=== PATIENT | male | born 1975 | race Caucasian/White ===

== ENCOUNTER → 2016-11-24 | Outpatient (CLI) | payer BC ==
--- NOTE | 2016-11-25 08:37 | XR ---
EXAMINATION TYPE: XR chest 2V DATE OF EXAM: 11/24/2016 7:33 PM COMPARISON: 02/26/2012 INDICATION: examination, shortness of breath for 3 months TECHNIQUE: Single frontal view of the chest is obtained. FINDINGS: The heart size is normal. The pulmonary vasculature is normal. The lungs are clear. IMPRESSION: 1. No acute pulmonary process.
== END ==
LOC: RADXRMAIN 19:21
PROVIDERS: ATTEND Family Medicine
DX: Z00.00 Encounter for general adult medical examination without abnormal findings (principal)
CPT/HCPCS: 71020

== ENCOUNTER → 2016-12-13 | Outpatient (CLI) | payer BC ==
--- NOTE | 2016-12-13 11:06 | US ---
EXAMINATION TYPE: US gallbladder DATE OF EXAM: 12/13/2016 9:09 AM COMPARISON: NONE CLINICAL HISTORY: 41-year-old male R79.9 abnormal Labs. Generalized abdominal pain per patient. TECHNIQUE: Multiple sonographic images of the right upper quadrant were obtained. FINDINGS: Liver Length: 13.1 cm Gallbladder Wall: 0.2 cm CBD: 0.4 cm Right Kidney: 11.7 x 5.1 x 6.0 cm Pancreas: Suboptimal visualization of the pancreatic tail secondary to shadowing from bowel gas. Vis ualized portions show no gross abnormality. Liver: Normal size and with homogeneous echotexture. No focal lesion. Gallbladder: There is a junctional fold. No abnormal gallbladder distention, wall thickening, perich olecystic fluid, or shadowing calculi. Evidence for sonographic Rodriguez's sign: No CBD: wnl Right Kidney: No hydronephrosis. IMPRESSION: No sonographic evidence for cholelithiasis, acute cholecystitis, or biliary ductal dilatation.
== END | disposition home or self-care (01) ==
LOC: RADUSWWP 08:32
PROVIDERS: ATTEND Family Medicine
DX: R79.9 Abnormal finding of blood chemistry, unspecified (principal)
CPT/HCPCS: 76705

== ENCOUNTER 2017-12-26 11:10 | Emergency (ER) | payer BC, OTHER ==
[2017-12-26 11:25] VITALS: BP 165/104; PULSE 72; RESP 20; TEMP 97.2
[2017-12-26] MEDS ORDERED: DIPH,PERTUS(ACELL)TETVAC-LF 0.5 ML VIAL IM ONE (12:04)
--- NOTE | 2017-12-26 12:23 | XR ---
EXAMINATION TYPE: XR hand complete LT DATE OF EXAM: 12/26/2017 COMPARISON: NONE HISTORY: Pain injury with drill TECHNIQUE: Three-view left hand FINDINGS: No acute fractures are evident. Joint spaces are preserved. Injury site is not identified. There is a tiny metallic foreign body within the subcutaneous tissues of the proximal index finger. C ouple of additional punctate densities appear to be along the surface of the distal index finger. No additional foreign bodies are identified. IMPRESSION: 1. No acute osseous abnormality. 2. Very tiny foreign body may be at the proximal radial aspect of the index finger. 3. Follow-up exams can be performed 7-10 days from acute trauma for continued pain
--- NOTE | 2017-12-26 12:35 | ED ---
General Adult HPI - General Chief complaint: Wound/Laceration Stated complaint: [facility] lt hand puncture Time Seen by Provider: 12/26/17 11:52 Source: patient, RN notes reviewed Mode of arrival: ambulatory Limitations: no limitations - History of Present Illness Initial comments: 42-year-old male presents to the emergency department for a chief complaint of puncture to the left hand. Patient states he was using a drill when he accidentally hit the side of his left hand. Patient denies any weakness in the hand but states it is sore. Patient states he can feel all 5 digits in the left hand and move them accordingly. Patient denies any fevers or chills. Patient denies any other complaints at this time including shortness of breath or chest pain. Patient is not sure when he had his last tetanus shot. Patient denies a history of MRSA. Patient is a type I diabetic. - Related Data Home Medications Medication Instructions Recorded Confirmed Insulin Regular, Human [NovoLIN R] 48 unit SQ DAILY 11/22/15 11/22/15 Previous Rx's Medication Instructions Recorded Amoxicillin/Potassium Clav 1 tab PO Q12HR #20 tab 12/26/17 [Augmentin 875-125 Tablet] Ibuprofen 600 mg PO Q8H PRN #20 tablet 12/26/17 Allergies Allergy/AdvReac Type Severity Reaction Status Date / Time No Known Allergies Allergy Verified 12/26/17 11:21 Review of Systems ROS Statement: Those systems with pertinent positive or pertinent negative responses have been documented in the HPI. ROS Other: All systems not noted in ROS Statement are negative. Past Medical History Past Medical History: Diabetes Mellitus, Hypertension History of Any Multi-Drug Resistant Organisms: None Reported Past Surgical History: No Surgical Hx Reported Past Psychological History: No Psychological Hx Reported Smoking Status: Current every day smoker Past Alcohol Use History: Occasional Past Drug Use History: None Reported General Exam Limitations: no limitations Respiratory exam: Present: normal lung sounds bilaterally. Absent: respiratory distress, wheezes, rales, rhonchi, stridor Cardiovascular Exam: Present: regular rate, normal rhythm, normal heart sounds. Absent: systolic murmur, diastolic murmur, rubs, gallop, clicks Extremities exam: Present: full ROM (Full range of motion of the left hand and digits), normal capillary refill (Refill less than 2 seconds in upper extremities bilaterally), other (There is a 1 cm puncture wound in the lateral palmar aspect of the left hand. Patient has full range of motion and sensation in the left hand and left digits. Capillary refill less than 2 seconds digits and nail beds of the left hand.). Absent: joint swelling Course Vital Signs 12/26/17 11:21 Temperature 97.2 F L Pulse Rate 72 Respiratory 20 Rate Blood Pressure 165/104 O2 Sat by Pulse 96 Oximetry Medical Decision Making - Medical Decision Making 42-year-old male presents the emergency department for a chief complaint of puncture wound from a drill the happened about an hour ago. There is a 1 cm laceration on the lateral palmar aspect of the left hand. Wound was thoroughly cleaned with sterile water and Betadine. It was soaked and then cleaned with jet lavage. Patient was offered to stitch this small laceration with one stitch but he did not want to have stitches. He was given a Steri-Strip and told to monitor for infection. Patient has full sensation and movement of the left hand. Cap refill less than 2 seconds in the nail beds of the left hand. Neurovascular intact. X-ray of the left hand demonstrates no acute fractures or dislocations. Very small foreign body may be at the proximal radial aspect of the index finger. This must be from a previous injury as it is not consistent in the location of this injury. Patient was given a tetanus shot and Augmentin. He is also given a prescription for ibuprofen and instructions for rice therapy. He will follow up with primary care in 1-2 days. We discussed monitoring for infection as he is a type I diabetic and he said he will closely watch the site as well as follow up with primary care so they can check on it. Disposition Clinical Impression: Puncture wound Disposition: HOME SELF-CARE Condition: Good Instructions: RICE Therapy (ED) Additional Instructions: Please take ibuprofen for pain relief. Please keep wound clean. Take Augmentin as directed. Monitor for signs of infection and return to the emergency department if you notice any occurring. Please follow-up with your primary care physician in 1 to 2 days. Please return to the Emergency Department if symptoms worsen or do not improve. Prescriptions: Amoxicillin/Potassium Clav [Augmentin 875-125 Tablet] 1 tab PO Q12HR #20 tab Ibuprofen 600 mg PO Q8H PRN #20 tablet PRN Reason: Pain Referrals: Joel Best DO [Primary Care Provider] - 1-2 days Time of Disposition: 12:33
== END 2017-12-26 13:06 | disposition home or self-care (01) ==
LOC: EC 11:10
DX: S61.432A Puncture wound without foreign body of left hand, initial encounter (principal); E10.8 Type 1 diabetes mellitus with unspecified complications; F17.200 Nicotine dependence, unspecified, uncomplicated; Z79.4 Long term (current) use of insulin; Z23 Encounter for immunization; W22.8XXA Striking against or struck by other objects, initial encounter; Y99.0 Civilian activity done for income or pay
CPT/HCPCS: 90471; 90715; 99283

== ENCOUNTER → 2018-03-31 | Outpatient (CLI) | payer BC ==
[2018-03-31 09:49] LABS: ALT 45 U/L (21-72); AST 25 U/L (17-59); Albumin 4.2 g/dL (3.5-5.0); Alkaline Phosphatase 122 U/L (38-126); Anion Gap 12 mmol/L; Blood Urea Nitrogen 17 mg/dL (9-20); Calcium 9.5 mg/dL (8.4-10.2); Carbon Dioxide 25 mmol/L (22-30); Chloride 102 mmol/L (98-107); Cholesterol 145 mg/dL (<200); Glucose 224 mg/dL (74-99); HDL Cholesterol 26 mg/dL (40-60); LDL Cholesterol,Calculated 87 mg/dL (0-99); Potassium 4.3 mmol/L (3.5-5.1); Sodium 139 mmol/L (137-145); Total Bilirubin 1.7 mg/dL (0.2-1.3); Total Protein 6.6 g/dL (6.3-8.2); Triglycerides 161 mg/dL (<150)
[2018-03-31 18:37] LABS: Hemoglobin A1C 9.4 % (4.0-6.0)
== END | disposition home or self-care (01) ==
LOC: LABWHC1 09:03
PROVIDERS: ATTEND Internal Medicine Endocrinology, Diabetes & Metabolism
DX: E10.65 Type 1 diabetes mellitus with hyperglycemia (principal)
CPT/HCPCS: 36415; 80053; 80061; 82043; 82570; 83036; 84443

== ENCOUNTER → 2018-09-01 | Outpatient (CLI) | payer BC ==
[2018-09-01 12:10] LABS: Basophils % (A) 1 %; Eosinophils # (A) 0.1 k/uL (0-0.7); Eosinophils % (A) 2 %; HCT 48.5 % (39.0-53.0); HGB 15.9 gm/dL (13.0-17.5); Lymphocytes % (A) 40 %; MCH 29.4 pg (25.0-35.0); MCHC 32.8 g/dL (31.0-37.0); MCV 89.5 fL (80.0-100.0); Mean Platelet Volume 7.4; Monocytes # (A) 0.3 k/uL (0-1.0); Monocytes % (A) 6 %; Neutrophils # (A) 2.6 k/uL (1.3-7.7); Neutrophils % (A) 50 %; Platelet Count 214 k/uL (150-450); RBC 5.42 m/uL (4.30-5.90); WBC 5.1 k/uL (3.8-10.6)
--- NOTE | 2018-09-02 13:40 | XR ---
EXAMINATION TYPE: XR chest 2V DATE OF EXAM: 09/01/2018 COMPARISON: 12/04/2016 HISTORY: Shortness of breath TECHNIQUE: Frontal and lateral views of the chest are obtained. FINDINGS: There is no focal air space opacity, pleural effusion, or pneumothorax seen. The cardiac silhouette size is within normal limits. The osseous structures are intact. Biapical pleural thicke joseph is stable. IMPRESSION: No acute cardiopulmonary process.
[2018-09-03 14:46] LABS: Alt. alternata IgE Class CLASS 0; Alternaria alternata IgE <0.35 kU/L (<0.35); Asperg. fumagatus IgE <0.35 kU/L (<0.35); Asperg. fumagatus IgE Class CLASS 0; Bermuda Grass IgE <0.35 kU/L (<0.35); Birch(Com.Silvr) IgE <0.35 kU/L (<0.35); Birch(Com.Silvr) IgE Class CLASS 0; Cat Epith & Dander IgE <0.35 kU/L (<0.35); Cat Epith & Dander IgE Class CLASS 0; Clad herbarum IgE <0.35 kU/L (<0.35); Cockroach IgE <0.35 kU/L (<0.35); Cottonwood IgE <0.35 kU/L (<0.35); Dermato. Pteronyssinus IgE <0.35 kU/L (<0.35); Dermato. farinae IgE <0.35 kU/L (<0.35); Dermato. farinae IgE Class CLASS 0; Dog Dander IgE <0.35 kU/L (<0.35); Elm IgE <0.35 kU/L (<0.35); Maple (Box Elder) IgE <0.35 kU/L (<0.35); Maple (Box Elder) IgE Class CLASS 0; Mountain Cedar IgE <0.35 kU/L (<0.35); Mountain Cedar IgE Class CLASS 0; Mouse Urine IgE Class CLASS 0; Nettle IgE <0.35 kU/L (<0.35); Nettle IgE Class CLASS 0; Oak IgE <0.35 kU/L (<0.35); Penicillium notatum IgE Class CLASS 0; Rough Marshelder IgE <0.35 kU/L (<0.35); Rough Marshelder IgE Class CLASS 0; Timothy Grass IgE <0.35 kU/L (<0.35); White Ash IgE Class CLASS 0
[2018-09-04 13:56] LABS: Alpha 1 Anti-Trypsin 91 mg/dL (90 - 200); Alpha-1-Antitrypsin Phenotype MZ
== END ==
LOC: LABWHC1 11:42
PROVIDERS: ATTEND Nurse Practitioner
DX: R06.02 Shortness of breath (principal); J45.909 Unspecified asthma, uncomplicated
CPT/HCPCS: 36415; 71046; 82103; 82104; 82785; 85025; 86001; 86003; 86606; 86609

== ENCOUNTER 2019-04-10 15:57 | Emergency (ER) | payer BC ==
[2019-04-10 16:12] VITALS: RESP 18; TEMP 98.6
[2019-04-10 16:13] LABS: Glucose,Whole Blood 178 mg/dL (75-99)
--- NOTE | 2019-04-10 16:16 | ED ---
Recheck HPI - General Chief Complaint: Altered Mental Status Stated Complaint: diabetic Time Seen by Provider: 04/10/19 16:04 Source: patient, EMS, RN notes reviewed, old records reviewed Mode of arrival: EMS Limitations: no limitations - History of Present Illness Initial Comments: This is a 43-year-old male the ER for evaluation. Patient is a type I diabetic on insulin pump with recent change in medications to his insulin especially in the afternoon. Patient with intractable per normal today no nausea vomiting or diarrhea. Patient was found to be altered with low blood sugar brought in by EMS who gave sugar, patient has improvement. Patient denying current complaints. Able to eat and drink MD Complaint: abnormal lab (Low blood sugar) -: minutes(s) Returns Today for: other (Patient had low blood sugar,decreased level responsiveness. Improved blood sugar was improved) Symptoms Since Prior Visit: no new symptoms Context: other (Coming in for symptoms) Associated Symptoms: malaise Treatments Prior to Arrival: IV/IO (Glucose) - Related Data Home Medications Medication Instructions Recorded Confirmed Insulin Aspart (For Pump) [NovoLOG 0.01 unit SQ-PUMP CONTINUOUS 04/10/19 04/10/19 (For Pump)] Lisinopril [Zestril] 20 mg PO DAILY 04/10/19 04/10/19 Multivitamins, Thera [Multivitamin 1 tab PO DAILY 04/10/19 04/10/19 (formulary)] Omeprazole 20 mg PO DAILY 04/10/19 04/10/19 Allergies Allergy/AdvReac Type Severity Reaction Status Date / Time No Known Allergies Allergy Verified 04/10/19 16:50 Review of Systems ROS Statement: Those systems with pertinent positive or pertinent negative responses have been documented in the HPI. ROS Other: All systems not noted in ROS Statement are negative. Past Medical History Past Medical History: Diabetes Mellitus, Hypertension History of Any Multi-Drug Resistant Organisms: None Reported Past Surgical History: No Surgical Hx Reported Past Psychological History: No Psychological Hx Reported Smoking Status: Current every day smoker Past Alcohol Use History: Occasional Past Drug Use History: None Reported General Exam Limitations: no limitations General appearance: alert, in no apparent distress Head exam: Present: atraumatic, normocephalic, normal inspection Eye exam: Present: normal appearance, PERRL, EOMI. Absent: scleral icterus, conjunctival injection, periorbital swelling ENT exam: Present: normal exam, mucous membranes moist Neck exam: Present: normal inspection. Absent: tenderness, meningismus, lymphadenopathy Respiratory exam: Present: normal lung sounds bilaterally. Absent: respiratory distress, wheezes, rales, rhonchi, stridor Cardiovascular Exam: Present: regular rate, normal rhythm, normal heart sounds. Absent: systolic murmur, diastolic murmur, rubs, gallop, clicks GI/Abdominal exam: Present: soft, normal bowel sounds. Absent: distended, tenderness, guarding, rebound, rigid Extremities exam: Present: normal inspection, full ROM, normal capillary refill. Absent: tenderness, pedal edema, joint swelling, calf tenderness Back exam: Present: normal inspection Neurological exam: Present: alert, oriented X3, CN II-XII intact Psychiatric exam: Present: normal affect, normal mood Skin exam: Present: warm, dry, intact, normal color. Absent: rash Course Vital Signs 04/10/19 04/10/19 16:07 16:52 Temperature 98.6 F Pulse Rate 92 83 Respiratory 18 18 Rate Blood Pressure 166/85 153/90 O2 Sat by Pulse 100 96 Oximetry - Reevaluation(s) Reevaluation #1: 04/10/19 17:25 Medical records reviewed Reevaluation #2: 04/10/19 17:25 Patient remains awake and alert, able to change in some pump, able to eat Medical Decision Making - Medical Decision Making 43 female the ER for evaluation altered mental status low blood sugar. Patient will be discharged home as he is able to currently drink - Lab Data Lab Results 04/10/19 Range/Units 16:11 POC Glucose (mg/dL) 178 H (75-99) mg/dL POC Glu Medical Underwriter Mario Waldrop Disposition Clinical Impression: Diabetic hypoglycemia Disposition: HOME SELF-CARE Condition: Good Instructions (If sedation given, give patient instructions): Hypoglycemia in a Person with Diabetes (ED) Is patient prescribed a controlled substance at d/c from ED?: No Referrals: Joel Best DO [Primary Care Provider] - 1-2 days
[2019-04-10 17:37] VITALS: BP 160/89; PULSE 87
[2019-04-10 17:40] LABS: Glucose,Whole Blood 243 mg/dL (75-99)
== END 2019-04-10 17:36 | disposition home or self-care (01) ==
LOC: EC 15:57
DX: E10.649 Type 1 diabetes mellitus with hypoglycemia without coma (principal); I10 Essential (primary) hypertension; F17.200 Nicotine dependence, unspecified, uncomplicated; Z79.4 Long term (current) use of insulin; Z79.899 Other long term (current) drug therapy; Z96.41 Presence of insulin pump (external) (internal)
CPT/HCPCS: 36415; 99285

== ENCOUNTER 2020-05-05 21:14 | Observation (INO) | payer BC ==
[2020-05-05] MEDS ORDERED: IPRATROPIUM-ALBUTEROL 3 ML NEB INHALATION STA (21:33)
[2020-05-05] MEDS ORDERED: ASPIRIN 81 MG PO STA (21:33)
--- NOTE | 2020-05-05 21:35 | ED ---
Chest Pain HPI - General Source: patient, RN notes reviewed Mode of arrival: ambulatory Limitations: no limitations <Brandin Fleming - Last Filed: 05/05/20 22:45> <Abdi Sotomayor - Last Filed: 05/05/20 23:19> - General Chief Complaint: Chest Pain Stated Complaint: Chest and back pain Time Seen by Provider: 05/05/20 21:24 - History of Present Illness Initial Comments: 43-year-old male presents emergency Department chief complaints of chest pain. Patient states started to 3 days ago. Patient states is substernal and does have some back pain. Patient states his back is very sensitive to touch denies any rash. Patient states he feels very short of breath but states this is usual as he is a daily smoker. Patient does admit that he has a history of hypertension and diabetes. Patient had an insulin pump. Patient states blood sugars have been recently elevated. Denies fever, chills, nausea vomiting diarrhea constipation. No abdominal complaints. Patient states he does have some exertional symptoms. (Brandin Fleming) - Related Data Home Medications Medication Instructions Recorded Confirmed Insulin Aspart (For Pump) [NovoLOG 0.01 unit SQ-PUMP CONTINUOUS 04/10/19 05/05/20 (For Pump)] Multivitamins, Thera [Multivitamin 1 tab PO DAILY 04/10/19 05/05/20 (formulary)] Omeprazole 20 mg PO DAILY 04/10/19 05/05/20 Losartan Potassium [Cozaar] 100 mg PO DAILY 05/05/20 05/05/20 Allergies Allergy/AdvReac Type Severity Reaction Status Date / Time amoxicillin Allergy Itching Verified 05/05/20 22:36 Review of Systems ROS Other: All systems not noted in ROS Statement are negative. <Brandin Fleming - Last Filed: 05/05/20 22:45> ROS Other: All systems not noted in ROS Statement are negative. <Abdi Sotomayor - Last Filed: 05/05/20 23:19> ROS Statement: Those systems with pertinent positive or pertinent negative responses have been documented in the HPI. EKG Findings - EKG Comments: EKG Findings:: EKG performed at 21:23 normal sinus rhythm rate of 91. 138 QRS 80 QT/QTC 342/420 <Brandin Fleming - Last Filed: 05/05/20 22:45> Past Medical History Past Medical History: Diabetes Mellitus, Hypertension History of Any Multi-Drug Resistant Organisms: None Reported Past Surgical History: No Surgical Hx Reported Past Psychological History: No Psychological Hx Reported Smoking Status: Current every day smoker Past Alcohol Use History: Occasional Past Drug Use History: None Reported <Brandin Fleming - Last Filed: 05/05/20 22:45> General Exam Limitations: no limitations General appearance: alert, in no apparent distress Head exam: Present: atraumatic, normocephalic, normal inspection Eye exam: Present: normal appearance, PERRL, EOMI. Absent: scleral icterus, conjunctival injection, periorbital swelling ENT exam: Present: normal exam, normal oropharynx, mucous membranes moist Neck exam: Present: normal inspection, full ROM. Absent: tenderness, meningismus, lymphadenopathy Respiratory exam: Present: wheezes. Absent: normal lung sounds bilaterally, respiratory distress, rales, rhonchi, stridor Cardiovascular Exam: Present: regular rate, normal rhythm, normal heart sounds. Absent: systolic murmur, diastolic murmur, rubs, gallop, clicks GI/Abdominal exam: Present: soft, normal bowel sounds. Absent: distended, tenderness, guarding, rebound, rigid Back exam: Absent: CVA tenderness (R), CVA tenderness (L) Neurological exam: Present: alert, oriented X3 Skin exam: Present: warm, dry, intact, normal color. Absent: rash <Brandin Fleming - Last Filed: 05/05/20 22:45> Course Vital Signs 05/05/20 05/05/20 05/05/20 21:15 22:11 22:24 Temperature 99.1 F Pulse Rate 96 84 80 Respiratory 18 Rate Blood Pressure 152/82 O2 Sat by Pulse 97 Oximetry Chest Pain MDM <Brandin Fleming - Last Filed: 05/05/20 22:45> <Abdi Sotomayor - Last Filed: 05/05/20 23:19> - [facility] [place] 44-year-old male presented for chest pain. Patient's x-ray shows evidence right lower lobe pneumonia. Patient does have uncontrolled type 1 diabetes at this point blood sugar 400 patient did give himself insulin. Patient continues to have chest pain. Patient be admitted for chest pain observation and repeat troponins, heparin (Brandin Fleming) I saw this patient in conjunction with the physician health education assistant. I performed independent history and physical exam. Agree with case management. (Abdi Sotomayor) Disposition <Brandin Fleming - Last Filed: 05/05/20 22:45> <Abdi Sotomayor - Last Filed: 05/05/20 23:19> Clinical Impression: Chest pain, Pneumonia, Uncontrolled diabetes mellitus Disposition: ADMITTED IP TO THIS [facility] Condition: Fair Referrals: Joel Best DO [Primary Care Provider] - 1-2 days
[2020-05-05 21:50] LABS: Basophils # (A) 0.1 k/uL (0-0.2); Basophils % (A) 1 %; Eosinophils # (A) 0.1 k/uL (0-0.7); Eosinophils % (A) 1 %; HGB 14.6 gm/dL (13.0-17.5); Lymphocytes # (A) 1.9 k/uL (1.0-4.8); Lymphocytes % (A) 20 %; MCH 29.4 pg (25.0-35.0); MCHC 32.5 g/dL (31.0-37.0); MCV 90.3 fL (80.0-100.0); Mean Platelet Volume 8.3; Monocytes # (A) 0.7 k/uL (0-1.0); Monocytes % (A) 7 %; Neutrophils # (A) 6.4 k/uL (1.3-7.7); Neutrophils % (A) 68 %; Platelet Count 222 k/uL (150-450); RBC 4.98 m/uL (4.30-5.90); RDW 12.9 % (11.5-15.5); WBC 9.3 k/uL (3.8-10.6)
[2020-05-05 22:07] LABS: ALT 20 U/L (4-49); AST 29 U/L (17-59); African American GFR (CKD) >90 (>60 ml/min/1.73 sqM); Alkaline Phosphatase 147 U/L (38-126); Anion Gap 8 mmol/L; Blood Urea Nitrogen 21 mg/dL (9-20); Calcium 8.9 mg/dL (8.4-10.2); Carbon Dioxide 24 mmol/L (22-30); Chloride 98 mmol/L (98-107); Glucose 397 mg/dL (74-99); Lipase 40 U/L (23-300); Magnesium 1.9 mg/dL (1.6-2.3); Non-African American GFR(CKD) 87 (>60 ml/min/1.73 sqM); Potassium 4.5 mmol/L (3.5-5.1); Sodium 130 mmol/L (137-145); Total Protein 6.5 g/dL (6.3-8.2)
--- NOTE | 2020-05-05 22:10 | XR ---
EXAMINATION TYPE: XR chest 2V DATE OF EXAM: 05/05/2020 COMPARISON: November 24, 2016 HISTORY: Chest pain TECHNIQUE: FINDINGS: There is poorly marginated 5 cm area of infiltrate in the posterior right lower lobe. The o ther lung coffey are fairly clear. There is minimal subsegmental atelectasis lateral left lung base. There are no hilar masses. Heart and mediastinum are normal. There is mild pleural thickening at the lung apices. Bony thorax is intact. There are chest leads. IMPRESSION: There is right lower lobe pneumonia that appears new compared to old exam. There is minim al atelectasis left lung base that is new compared to old exam.
[2020-05-05 22:33] LABS: D-Dimer 0.23 mg/L FEU (<0.60); INR 0.9 (<1.2); Partial Thromboplastin Time 23.8 sec (22.0-30.0); Prothrombin Time 9.3 sec (9.0-12.0)
[2020-05-05] MEDS ORDERED: HEPARIN SODIUM,PORCINE 5,000 UNIT/ML 1 ML VIAL IV PRN (22:47)
[2020-05-05] MEDS ORDERED: NITROGLYCERIN SL TABS 0.4 MG TAB SUBLINGUAL PRN (22:47)
[2020-05-05] MEDS ORDERED: PNEUMONIA PROTOCOL UTILIZED 1 EACH MISC PO PRN (22:47)
[2020-05-05] MEDS ORDERED: HEPARIN SODIUM,PORCINE 5,000 UNIT/ML 1 ML VIAL IV ONE (22:47)
[2020-05-05] MEDS ORDERED: AZITHROMYCIN 500 MG in SODIUM CHLORIDE 0.9% 250 ML IVPB STA (22:47)
[2020-05-05] MEDS ORDERED: HEPARIN SOD,PORK IN 0.45% NACL 25,000 UNIT in 0.45% NACL 1 250ML.BAG IV SCH (23:00)
[2020-05-06 06:11] LABS: Mean Platelet Volume 8.4; Platelet Count 226 k/uL (150-450)
[2020-05-06 06:14] LABS: Cholesterol 176 mg/dL (<200); HDL Cholesterol 29 mg/dL (40-60); LDL Cholesterol,Calculated 123 mg/dL (0-99); Triglycerides 120 mg/dL (<150)
[2020-05-06 06:31] LABS: Glucose,Whole Blood 69 mg/dL (75-99)
[2020-05-06 06:53] LABS: Glucose,Whole Blood 76 mg/dL (75-99)
[2020-05-06] MEDS ORDERED: IPRATROPIUM-ALBUTEROL 3 ML NEB INHALATION SCH (08:00)
--- NOTE | 2020-05-06 08:17 | XR ---
EXAMINATION TYPE: XR chest 2V DATE OF EXAM: 05/06/2020 COMPARISON: R chest x-ray 05/05/2020 HISTORY: Pneumonia TECHNIQUE: Frontal and lateral views of the chest are obtained. FINDINGS: There is no significant interval change. IMPRESSION: Findings consistent with right lower lobe pneumonia.
[2020-05-06] MEDS ORDERED: ATORVASTATIN 40 MG TAB PO SCH (09:00)
[2020-05-06] MEDS ORDERED: ASPIRIN 325 MG TAB PO SCH (09:00)
[2020-05-06] MEDS ORDERED: ASPIRIN 81 MG PO SCH (09:00)
[2020-05-06 09:16] VITALS: BP 123/68; PULSE 77; RESP 16; TEMP 98.5
--- NOTE | 2020-05-06 09:56 | P.CRDCN ---
History of Present Illness History of present illness: cp worse with deep inspiration since monday. HISTORY OF PRESENTING ILLNESS This is a pleasant 44-year-old male past medical history significant for hypertension, diabetes mellitus and chronic nicotine dependence. He denies prior history of coronary artery disease and does not follow in the office with a customer engagement analyst for any reason. We have been asked to see in consultation for chest pain. He presented to the hospital with a 3 day history of pleuritic chest discomfort that radiated through to his back. The discomfort was worse with deep inspiration. He denies exertional chest discomfort. He did have some associated shortness of breath. No nausea, vomiting, palpitations, diaphoresis or cough. He has been diagnosed with pneumonia and started on IV antibiotics. DIAGNOSTICS EKG reveals sinus mechanism with no acute ST or T wave abnormalities noted. Chest xray right lower lobe pneumonia. Laboratory reviewed, BC unremarkable, d-dimer 0.23, sodium 1:30, potassium 4.5, creatinine 1.05, magnesium 1.9, alkaline phosphate 147, cardiac enzymes negative 3, LDL 123 and HDL 29. Current cardiac medications include aspirin 81 mg daily and losartan 100 mg daily. REVIEW OF SYSTEMS At the time of my exam: CONSTITUTIONAL: Denies fever or chills. CARDIOVASCULAR: Denies chest pain, shortness of breath, orthopnea, PND or palpitations. RESPIRATORY: Denies cough. GASTROINTESTINAL: Denies abdominal pain, diarrhea, constipation, nausea or vomiting. MUSCULOSKELETAL: Denies myalgias. NEUROLOGIC: Denies numbness, tingling or weakness. ENDOCRINE: Denies fatigue, weight change, polydipsia or polyurina. GENITOURINARY: Denies burning, hematuria or urgency with micturation. HEMATOLOGIC: Denies history of anemia or bleeding. PHYSICAL EXAMINATION Blood pressure 123/68 heart rate 77 afebrile and maintaining oxygen saturation on room air. CONSTITUTIONAL: No apparent distress. HEENT: Head is normocephalic. Pupils are equal, round. Sclerae anicteric. Mucous membranes of the mouth are moist. No JVD. No carotid bruit. CHEST EXAMINATION: Lungs are clear to auscultation. No chest wall tenderness is noted on palpation or with deep breathing. HEART EXAMINATION: Regular rate and rhythm. S1, S2 heard. No murmurs, gallops or rub. ABDOMEN: Soft, nontender. Positive bowel sounds. EXTREMITIES: 2+ peripheral pulses, no lower extremity edema and no calf tenderness. NEUROLOGIC EXAMINATION: Patient is awake, alert and oriented x3. ASSESSMENT Pain, pleuritic. An acute coronary event has been ruled out. Pneumonia Hypertension Diabetes mellitus Dyslipidemia Chronic nicotine dependence PLAN Pain is pleuritic in nature and likely related to underlying pneumonia. An acute coronary event has been ruled out. Given the patient's significant risk factor profile we recommend outpatient stress testing when pneumonia has resolved. Initiate the patient on atorvastatin 40 mg daily and continue losartan as previously ordered. We also recommended taking a daily aspirin. Follow-up in the office with Dr. Herzog. Thank you kindly for this consultation. Nurse Practitioner note has been reviewed, I agree with a documented findings and plan of care. Patient was seen and examined. Past Medical History Past Medical History: Diabetes Mellitus, Hypertension History of Any Multi-Drug Resistant Organisms: None Reported Past Surgical History: No Surgical Hx Reported Past Psychological History: No Psychological Hx Reported Smoking Status: Current every day smoker Past Alcohol Use History: Occasional Past Drug Use History: None Reported - Past Family History Father Family Medical History: Myocardial Infarction ([place]) Mother Additional Family Medical History / Comment(s): heart problems Medications and Allergies Home Medications Medication Instructions Recorded Confirmed Type Insulin Aspart (For Pump) [NovoLOG 0.01 unit SQ-PUMP CONTINUOUS 04/10/19 05/05/20 History (For Pump)] Multivitamins, Thera [Multivitamin 1 tab PO DAILY 04/10/19 05/05/20 History (formulary)] Omeprazole 20 mg PO DAILY 04/10/19 05/05/20 History Losartan Potassium [Cozaar] 100 mg PO DAILY 05/05/20 05/05/20 History Albuterol Inhaler [Ventolin Hfa 2 puff INHALATION RT-QID #1 inhaler 05/06/20 Rx Inhaler] Aspirin 81 mg PO DAILY chew 05/06/20 Rx Atorvastatin [Lipitor] 40 mg PO DAILY #30 tab 05/06/20 Rx Azithromycin [Zithromax] 500 mg PO Q24H #7 tab 05/06/20 Rx guaiFENesin-DM 600/30MG [Mucinex 1 each PO Q12HR #30 tab.er.12h 05/06/20 Rx Dm] lisinopriL [Zestril] 2.5 mg PO DAILY #30 tab 05/06/20 Rx Allergies Allergy/AdvReac Type Severity Reaction Status Date / Time amoxicillin Allergy Itching Verified 05/05/20 22:36 Physical Exam Vitals: Vital Signs Temp Pulse Pulse Resp BP BP Pulse Ox 05/06/20 08:12 78 05/06/20 08:01 76 97 05/06/20 03:00 98.3 F 87 17 133/77 95 05/05/20 23:36 98.9 F 90 16 95 05/05/20 22:24 80 05/05/20 22:11 84 05/05/20 21:15 99.1 F 96 18 152/82 97 Intake and Output 05/05/20 05/06/20 05/06/20 22:59 06:59 14:59 Intake Total 64.905 Balance 64.905 Intake: Intake, IV Titration 64.905 Amount Heparin Sod,Pork in 0.45% 64.905 NaCl 25,000 unit In 0.45 % NaCl 1 250ml.bag @ 10 UNITS/KG/HR 9.163 mls/hr IV .Q24H [facility] Rx#: [id number] Other: # Voids 1 Weight 91.626 kg 91.626 kg Results 05/06/20 05:34 05/05/20 21:39 Cardiac Enzymes 05/05/20 05/05/20 05/06/20 Range/Units 21:39 21:39 00:40 AST 29 (17-59) U/L Troponin I <0.012 <0.012 (0.000-0.034) ng/mL 05/06/20 Range/Units 05:34 AST (17-59) U/L Troponin I <0.012 (0.000-0.034) ng/mL Coagulation 05/05/20 05/06/20 Range/Units 21:39 05:34 PT 9.3 (9.0-12.0) sec APTT 23.8 30.0 (22.0-30.0) sec Lipids 05/06/20 Range/Units 05:34 Triglycerides 120 (<150) mg/dL Cholesterol 176 (<200) mg/dL HDL Cholesterol 29 L (40-60) mg/dL CBC 05/05/20 05/06/20 Range/Units 21:39 05:34 WBC 9.3 (3.8-10.6) k/uL RBC 4.98 (4.30-5.90) m/uL Hgb 14.6 (13.0-17.5) gm/dL Hct 45.0 (39.0-53.0) % Plt Count 222 226 (150-450) k/uL Comprehensive Metabolic Panel 05/05/20 Range/Units 21:39 Sodium 130 L (137-145) mmol/L Potassium 4.5 (3.5-5.1) mmol/L Chloride 98 (98-107) mmol/L Carbon Dioxide 24 (22-30) mmol/L BUN 21 H (9-20) mg/dL Creatinine 1.05 (0.66-1.25) mg/dL Glucose 397 H (74-99) mg/dL Calcium 8.9 (8.4-10.2) mg/dL AST 29 (17-59) U/L ALT 20 (4-49) U/L Alkaline Phosphatase 147 H (38-126) U/L Total Protein 6.5 (6.3-8.2) g/dL Albumin 4.0 (3.5-5.0) g/dL Current Medications Generic Name Dose Route Start Last Admin Trade Name Freq PRN Reason Stop Dose Admin Albuterol/Ipratropium 3 ml 05/06/20 08:00 05/06/20 08:01 Duoneb 0.5 Mg-3 Mg/3 Ml Soln INHALATION 3 ml RT-QID [facility] Administration Aspirin 325 mg 05/06/20 09:00 Aspirin PO DAILY [facility] Azithromycin 500 mg 05/06/20 22:49 Zithromax PO Q24H [facility] Heparin Sodium (Porcine) 0 unit 05/05/20 22:47 Heparin IV Q6HR PRN Low PTT Protocol Heparin Sodium/Sodium Chloride 250 mls @ 9.163 mls/hr 05/05/20 23:00 05/06/20 06:24 25,000 unit/ Sodium Chloride IV 13 units/kg/hr .Q24H [facility] 11.911 mls/hr Titration Protocol 10 UNITS/KG/HR Ceftriaxone Sodium 2 gm/ 50 mls @ 100 mls/hr 05/06/20 22:49 Sodium Chloride IVPB Q24H [facility] Miscellaneous Information 1 each 05/05/20 22:47 Pneumonia Protocol Utilized PO ONCE PRN Per Protocol Nitroglycerin 0.4 mg 05/05/20 22:47 Nitrostat SUBLINGUAL Q5M PRN Chest Pain Intake and Output 05/05/20 05/06/20 05/06/20 22:59 06:59 14:59 Intake Total 64.905 Balance 64.905 Intake: Intake, IV Titration 64.905 Amount Heparin Sod,Pork in 0.45% 64.905 NaCl 25,000 unit In 0.45 % NaCl 1 250ml.bag @ 10 UNITS/KG/HR 9.163 mls/hr IV .Q24H [facility] Rx#: [id number] Other: # Voids 1 Weight 91.626 kg 91.626 kg 05/06/20 05:34 05/05/20 21:39
--- NOTE | 2020-05-06 10:44 | P.HPIM ---
History of Present Illness H&P Date: 05/06/20 History of Present Illness This is a 44-year-old male patient of Dr. Best with past medical history of diabetes mellitus type 1, hypertension, hyperlipidemia, COPD, active tobacco use and dependence. Patient also follows with Dr. Morillo, job tracer. Patient is currently on insulin pump but apparently is in the process of changing problems. He does not have a continuous glucose monitor but this is in the works. Patient states that yesterday he developed difficulty with breathing and Getting worse and also chest pain. His blood sugar was okay at home. He also went to his back and worsened with deep inspiration. He denies having any nausea vomiting or diarrhea. Regarding smoking, patient is a smoker one pack per day for 25 years. Patient came into [facility] emergency center for evaluation. EKG reveals sinus rhythm with no acute ST or T wave abnormalities noted. Chest xray right lower lobe pneumonia. CBC unremarkable, d-dimer 0.23, sodium 130, potassium 4.5, creatinine 1.05, blood sugar initially 397 and repeat this mo rning at 69 and 76, magnesium 1.9, alkaline phosphate 147, troponins negative 3, LDL 123 and HDL 29. Patient was started on azithromycin and ceftriaxone, DuoNeb treatments, placed in the observation unit and cardiology consult was requested. Patient has been evaluated by cardiology and cleared for discharge. Patient denies having any chest pain at the time of evaluation. He has had improvement in shortness of breath with current treatment. Patient will be discharged home today in stable condition. Review of Systems Constitutional: No fever, no chills, no night sweats. No weight change. No weakness, fatigue or lethargy. No daytime sleepiness. EENT: No headache. No blurred vision or double vision, no loss of vision. No loss of Hearing, no ringing in the ears, no dizziness. No nasal drainage or congestion. No epistaxis. No sore throat. Lungs: Reported shortness of breath, reported cough, no sputum production. No wheezing. Cardiovascular: Reported chest pain, no lower extremity edema. No palpitations. No paroxysmal nocturnal dyspnea. No orthopnea. No lightheadedness or dizziness. No syncopal episodes. Abdominal: No abdominal pain. No nausea, vomiting. No diarrhea. No constipation. No bloody or tarry stools.. No loss of appetite. Genitourinary: No dysuria, increased frequency, urgency. No urinary retention. Musculoskeletal: No myalgias. No muscle weakness, no gait dysfunction, no frequent falls. No back pain. No neck pain. Integumentary: No wounds, no lesions. No rash or pruritus. No unusual bruising. No change in hair or nails. Neurologic: No aphasia. No facial droop. No change in mentation. No head injury. No headache. No paralysis. No paresthesia. Psychiatric: No depression. No anxiety. No mood swings. Endocrine: Reported abnormal blood sugars. No weight change. No excessive sweating or thirst. No cold intolerance. Physical Examination Gen: This is a 44-year-old male. He is resting in bed and appears to be comfortable and in no acute distress. HEENT: Head is atraumatic, normocephalic. Pupils equal, round. Sclerae is anicteric. NECK: Supple. No JVD. No lymphadenopathy. No thyromegaly. LUNGS: Crackles in the right lower lobe. No wheezes. No intercostal retracti ons. HEART: Regular rate and rhythm. No murmur. No chest wall tenderness. ABDOMEN: Soft. Bowel sounds are present. No masses. No tenderness. EXTREMITIES: No pedal edema. No calf tenderness. Dorsalis pedis palpable bilaterally. NEUROLOGICAL: Patient is awake, alert and oriented x3. Cranial nerves 2 through 12 are grossly intact. Assessment and Plan 1. Right lower lobe pneumonia. Patient will be discharged home on Mucinex, azithromycin for 7 days and albuterol inhaler. 2. Chest pain, acute coronary syndrome ruled out. Cardiology consult appreciated. Patient has been started on atorvastatin 40 mg daily and aspirin 81 mg daily. 3. Diabetes mellitus type 2, uncontrolled with hyperglycemia. Patient to maintain insulin pump and increase frequency of glucose monitoring at home. Patient will meet with math coach. Follow up with job tracer regard ing new insulin pump and continuous glucose monitoring. 4. Hypertension. 5. Hyperlipidemia. 6. COPD. 7. COVID-19 testing. Patient placed on the observation unit. Discharge plan: Home Discharge Medication List Insulin Aspart (For Pump) [NovoLOG (For Pump)] 0.01 unit SQ-PUMP CONTINUOUS 04/10/19 [History] Multivitamins, Thera [Multivitamin (formulary)] 1 tab PO DAILY 04/10/19 [History] Omeprazole 20 mg PO DAILY 04/10/19 [History] Losartan Potassium [Cozaar] 100 mg PO DAILY 05/05/20 [History] Albuterol Inhaler [Ventolin Hfa Inhaler] 2 puff INHALATION RT-QID #1 inhaler 05/06/20 [Rx] Aspirin 81 mg PO DAILY chew 05/06/20 [Rx] Atorvastatin [Lipitor] 40 mg PO DAILY #30 tab 05/06/20 [Rx] Azithromycin [Zithromax] 500 mg PO Q24H #7 tab 05/06/20 [Rx] guaiFENesin-DM 600/30MG [Mucinex Dm] 1 each PO Q12HR #30 tab.er.12h 05/06/20 [Rx] Impression and plan of care have been directed as dictated by the signing physician. Rut Lock nurse practitioner acting as scribe for signing physician. Past Medical History Past Medical History: Diabetes Mellitus, Hyperlipidemia, Hypertension History of Any Multi-Drug Resistant Organisms: None Reported Past Surgical History: No Surgical Hx Reported Past Psychological History: No Psychological Hx Reported Smoking Status: Current every day smoker Past Alcohol Use History: Occasional Additional Past Alcohol Use History / Comment(s): Patient is a smoker one pack per day for 25 years. He denies any marijuana or street drug use. He drinks alcohol rarely. He lives at home with his . He does not have a CPAP or nebulizer. He works installing [employer]. Past Drug Use History: None Reported - Past Family History Father Family Medical History: Myocardial Infarction ([place]) Additional Family Medical History / Comment(s): Father is alive at age 73 with history of coronary artery disease. Mother Additional Family Medical History / Comment(s): Mother is alive at age 73 with history of coronary artery disease. Brother(s) Additional Family Medical History / Comment(s): Patient does not have any brothers. Patient has 2 sisters with no major medical problems. Patient has 4 children with no major medical problems. Medications and Allergies Home Medications Medication Instructions Recorded Confirmed Type Insulin Aspart (For Pump) [NovoLOG 0.01 unit SQ-PUMP CONTINUOUS 04/10/19 History (For Pump)] Multivitamins, Thera [Multivitamin 1 tab PO DAILY 04/10/19 05/05/20 History (formulary)] Omeprazole 20 mg PO DAILY 04/10/19 05/05/20 History Losartan Potassium [Cozaar] 100 mg PO DAILY 05/05/20 05/05/20 History Albuterol Inhaler [Ventolin Hfa 2 puff INHALATION RT-QID #1 inhaler 05/06/20 Rx Inhaler] Aspirin 81 mg PO DAILY chew 05/06/20 Rx Atorvastatin [Lipitor] 40 mg PO DAILY #30 tab 05/06/20 Rx Azithromycin [Zithromax] 500 mg PO Q24H #7 tab 05/06/20 Rx guaiFENesin-DM 600/30MG [Mucinex 1 each PO Q12HR #30 tab.er.12h 05/06/20 Rx Dm] Allergies Allergy/AdvReac Type Severity Reaction Status Date / Time amoxicillin Allergy Itching Verified 05/05/20 22:36 Physical Exam Vitals: Vital Signs Temp Pulse Pulse Resp BP BP BP 05/06/20 09:15 98.5 F 77 16 123/68 05/06/20 08:12 78 05/06/20 08:01 76 05/06/20 03:00 98.3 F 87 17 133/77 05/05/20 23:36 98.9 F 90 16 05/05/20 22:24 80 05/05/20 22:11 84 05/05/20 21:15 99.1 F 96 18 152/82 Pulse Ox 05/06/20 09:15 95 05/06/20 08:12 05/06/20 08:01 97 05/06/20 03:00 95 05/05/20 23:36 95 05/05/20 22:24 05/05/20 22:11 05/05/20 21:15 97 Intake and Output 05/05/20 05/06/20 05/06/20 22:59 06:59 14:59 Intake Total 64.905 Balance 64.905 Intake: Intake, IV Titration 64.905 Amount Heparin Sod,Pork in 0.45% 64.905 NaCl 25,000 unit In 0.45 % NaCl 1 250ml.bag @ 10 UNITS/KG/HR 9.163 mls/hr IV .Q24H [facility] Rx#: [id number] Other: Voiding Method Toilet # Voids 1 1 Weight 91.626 kg 91.626 kg Results CBC & Chem 7: 05/06/20 05:34 05/05/20 21:39 Labs: Abnormal Lab Results - Last 24 Hours (Table) 05/05/20 05/06/20 05/06/20 Range/Units 21:39 05:34 06:30 Sodium 130 L (137-145) mmol/L BUN 21 H (9-20) mg/dL Glucose 397 H (74-99) mg/dL POC Glucose (mg/dL) 69 L (75-99) mg/dL Alkaline Phosphatase 147 H (38-126) U/L LDL Cholesterol, Calc 123 H (0-99) mg/dL HDL Cholesterol 29 L (40-60) mg/dL Thrombosis Risk Factor Assmnt - DVT/VTE Prophylaxis DVT/VTE Prophylaxis: Mechanical Prophylaxis ordered - Choose All That Apply Any of the Below Risk Factors Present?: Yes Each Factor Represents 1 point: Age 41-60 years, Obesity (BMI >25) Other Risk Factors: No Other congenital or acquired thrombophilia - If yes, enter type in comment: No Thrombosis Risk Factor Assessment Total Risk Factor Score: 2 Thrombosis Risk Factor Assessment Level: Low Risk
[2020-05-06] MEDS ORDERED: AZITHROMYCIN 500 MG TAB PO SCH (22:49)
== END 2020-05-06 10:58 | disposition home or self-care (01) ==
LOC: EC 21:14 → 1SOBS 23:18
PROVIDERS: ADMIT Internal Medicine Geriatric Medicine; ATTEND Internal Medicine Geriatric Medicine
DX: J18.9 Pneumonia, unspecified organism (principal); R07.89 Other chest pain; R07.81 Pleurodynia; E10.65 Type 1 diabetes mellitus with hyperglycemia; I10 Essential (primary) hypertension; E78.5 Hyperlipidemia, unspecified; J44.0 Chronic obstructive pulmonary disease with (acute) lower respiratory infection; F17.210 Nicotine dependence, cigarettes, uncomplicated; Z20.828 Contact with and (suspected) exposure to other viral communicable diseases; Z96.41 Presence of insulin pump (external) (internal); Z79.4 Long term (current) use of insulin; Z79.899 Other long term (current) drug therapy; Z88.0 Allergy status to penicillin; Z82.49 Family history of ischemic heart disease and other diseases of the circulatory system
CPT/HCPCS: 96366; 96376; 96368; 96365; 99285; 36415; 94640 ×2; 94760; 93005 ×2; 85379; 80061; 80053; 83605; 83690; 83735; 84484 ×2; 85025; 85049; 85610; 85730 ×2; 87040; 71046 ×2; G0378 ×2; U0003; J1644 ×2; J0456; J0696

== ENCOUNTER 2020-06-09 19:05 | Emergency (ER) | payer BC ==
[2020-06-09 19:15] VITALS: BP 170/90; PULSE 80; RESP 18; TEMP 97.8
[2020-06-09] MEDS ORDERED: PROPARACAINE 0.5% OPHTH DROPS 15 ML BTL RIGHT EYE STA (19:20)
[2020-06-09] MEDS ORDERED: FLUORESCEIN STRIPS 1 MG STRIP RIGHT EYE ONE (19:20)
[2020-06-09] MEDS ORDERED: TOBRAMYCIN 0.3% OPHTH DROPS 5 ML BTL RIGHT EYE STA (19:20)
--- NOTE | 2020-06-09 19:46 | ED ---
Eye Problem HPI - General Chief complaint: Eye Problems Stated complaint: rt eye foreign body Time Seen by Provider: 06/09/20 19:16 Source: patient, RN notes reviewed Mode of arrival: ambulatory Limitations: no limitations - History of Present Illness Initial comments: This a 44-year-old male presents emergency Department chief complaint of right eye foreign body. Patient states she's grinding on states it's he obtain a foreign body in his right eye. Patient was unable to remove it. Patient was seen at Neil's office yesterday in which she was told he cannot hold still enough to remove the foreign body and was discharged from office. Patient states she's had some tearing mild her vision. He is up-to-date on his tetanus was last 5 years. - Related Data Home Medications Medication Instructions Recorded Confirmed Insulin Aspart (For Pump) [NovoLOG 0.01 unit SQ-PUMP CONTINUOUS 04/10/19 05/05/20 (For Pump)] Multivitamins, Thera [Multivitamin 1 tab PO DAILY 04/10/19 05/05/20 (formulary)] Omeprazole 20 mg PO DAILY 04/10/19 05/05/20 Losartan Potassium [Cozaar] 100 mg PO DAILY 05/05/20 05/05/20 Previous Rx's Medication Instructions Recorded Albuterol Inhaler [Ventolin Hfa 2 puff INHALATION RT-QID #1 inhaler 05/06/20 Inhaler] Aspirin 81 mg PO DAILY chew 05/06/20 Atorvastatin [Lipitor] 40 mg PO DAILY #30 tab 05/06/20 Azithromycin [Zithromax] 500 mg PO Q24H #7 tab 05/06/20 guaiFENesin-DM 600/30MG [Mucinex 1 each PO Q12HR #30 tab.er.12h 05/06/20 Dm] Allergies Allergy/AdvReac Type Severity Reaction Status Date / Time amoxicillin Allergy Itching Verified 06/09/20 19:15 Review of Systems ROS Statement: Those systems with pertinent positive or pertinent negative responses have been documented in the HPI. ROS Other: All systems not noted in ROS Statement are negative. Past Medical History Past Medical History: Diabetes Mellitus, Hyperlipidemia, Hypertension History of Any Multi-Drug Resistant Organisms: None Reported Past Surgical History: No Surgical Hx Reported Past Psychological History: No Psychological Hx Reported Smoking Status: Current every day smoker Past Alcohol Use History: Occasional Past Drug Use History: None Reported - Past Family History Father Family Medical History: Myocardial Infarction ([place]) Additional Family Medical History / Comment(s): Father is alive at age 73 with history of coronary artery disease. Mother Additional Family Medical History / Comment(s): Mother is alive at age 73 with history of coronary artery disease. Brother(s) Additional Family Medical History / Comment(s): Patient does not have any brothers. Patient has 2 sisters with no major medical problems. Patient has 4 children with no major medical problems. General Exam General appearance: alert, in no apparent distress Head exam: Present: atraumatic, normocephalic, normal inspection Eye exam: Present: PERRL, EOMI, conjunctival injection (Mild right). Absent: normal appearance (Foreign body in the 3 o'clock position of the right eye), scleral icterus, periorbital swelling Pupils: Present: other (Uptake with fluorescein dye and the right eye) ENT exam: Present: normal exam, mucous membranes moist Neck exam: Present: normal inspection, full ROM. Absent: tenderness, meningismus, lymphadenopathy Respiratory exam: Present: normal lung sounds bilaterally. Absent: respiratory distress, wheezes, rales, rhonchi, stridor Cardiovascular Exam: Present: regular rate, normal rhythm, normal heart sounds. Absent: systolic murmur, diastolic murmur, rubs, gallop, clicks Course Vital Signs 06/09/20 19:12 Temperature 97.8 F Pulse Rate 80 Respiratory 18 Rate Blood Pressure 170/90 O2 Sat by Pulse 98 Oximetry Procedures - Forgein Body Removal Eye Site: Right Anesthetic Used: Proparacaine Eye Exam Technique: Jones Lamp, Fluorescein Foreign Body Suspected: Metal Forgein Body Removal Technique: Needle, Algerbrush Remaining Debris: Yes (Minimal rust ring) Patient Tolerated: no complications Medical Decision Making - Medical Decision Making 44-year-old male presented for right eye foreign body. This was able to removed there is a large rust ring which majority was removed patient advised that needs a follow-up with workers' compensation claims supervisor for further evaluation patient will be discharged on Tobrex eyedrops. Return parameters discussed. Disposition Clinical Impression: Corneal foreign body, Corneal rust ring of right eye Disposition: HOME SELF-CARE Condition: Stable Instructions (If sedation given, give patient instructions): Eye Foreign Body (ED) Additional Instructions: Please use Tobrex eyedrops 2 drop to right eye every 4 hours for 5 days.Please return to the Emergency Department if symptoms worsen or any other concerns. Is patient prescribed a controlled substance at d/c from ED?: No Referrals: Joel Best DO [Primary Care Provider] - 1-2 days Steven Finnegan MD [STAFF PHYSICIAN] - 1-2 days Time of Disposition: 19:46
== END 2020-06-09 20:06 | disposition home or self-care (01) ==
LOC: EC 19:05
DX: T15.01XA Foreign body in cornea, right eye, initial encounter (principal); F17.200 Nicotine dependence, unspecified, uncomplicated; E11.9 Type 2 diabetes mellitus without complications; E78.5 Hyperlipidemia, unspecified; I10 Essential (primary) hypertension; Z79.4 Long term (current) use of insulin; Z79.899 Other long term (current) drug therapy; Z88.0 Allergy status to penicillin; W45.8XXA Other foreign body or object entering through skin, initial encounter; Y93.89 Activity, other specified; Y92.59 Other trade areas as the place of occurrence of the external cause
CPT/HCPCS: 65220; 99283

== ENCOUNTER → 2021-02-05 | Outpatient (CLI) | payer BC ==
[2021-02-06 01:36] LABS: Hemoglobin A1C 9.3 % (4.0-6.0)
[2021-02-06 02:21] LABS: African American GFR (CKD) 93.5 (60.0-200.0); Albumin 4.6 g/dL (3.80-4.90); Albumin/Globulin Ratio 2.09 (1.60-3.17); Anion Gap 9.4 mmol/L (4.00-12.00); Calcium 9.3 mg/dL (8.7-10.3); Carbon Dioxide 22.6 mmol/L (21.6-31.8); Chol/HDL Ratio 7.59; Globulin 2.2 g/dL (1.6-3.3); Non-African American GFR(CKD) 80.6 (60.0-200.0); Potassium 4.3 mmol/L (3.5-5.5); Total Bilirubin 1.2 mg/dL (0.3-1.2); Total Protein 6.8 g/dL (6.2-8.2)
[2021-02-06 04:13] LABS: Urine Creatinine 131.8 mg/dL
== END | disposition home or self-care (01) ==
LOC: LABWHC1 15:09
PROVIDERS: ATTEND Internal Medicine Endocrinology, Diabetes & Metabolism
DX: E10.65 Type 1 diabetes mellitus with hyperglycemia (principal)
CPT/HCPCS: 36415; 80053; 80061; 82043; 82570; 83036; 83721; 84443

== ENCOUNTER → 2021-12-25 | Outpatient (CLI) | payer BC ==
[2021-12-25 12:15] LABS: ALT 26 U/L (10-49); AST 23 U/L (14-35); African American GFR (CKD) 92.8 (60.0-200.0); Albumin 4.6 g/dL (3.8-4.9); Albumin/Globulin Ratio 1.77 (1.60-3.17); Alkaline Phosphatase 141 U/L (41-126); BUN/Creat Ratio 16.82 Ratio (12.00-20.00); Blood Urea Nitrogen 18.5 mg/dL (9.0-27.0); Calcium 9.6 mg/dL (8.7-10.3); Carbon Dioxide 22.5 mmol/L (20.0-27.5); Chloride 102 mmol/L (96-109); Chol/HDL Ratio 6.65 Ratio; Globulin 2.6 g/dL (1.6-3.3); Glucose 177 mg/dL (70-110); LDL Cholesterol,Calculated 172.9 mg/dL (0.0-131.0); Non-African American GFR(CKD) 80.1 (60.0-200.0); Potassium 4.3 mmol/L (3.5-5.5); Sodium 138 mmol/L (135-145); Total Protein 7.2 g/dL (6.2-8.2)
== END | disposition home or self-care (01) ==
LOC: LABWHC1 08:44
PROVIDERS: ATTEND Internal Medicine Endocrinology, Diabetes & Metabolism
DX: E10.65 Type 1 diabetes mellitus with hyperglycemia (principal)
CPT/HCPCS: 36415; 80053; 80061; 82043; 82570; 83036; 84443

== ENCOUNTER → 2022-03-19 | Outpatient (CLI) | payer BC ==
[2022-03-19 16:03] LABS: Estimated Average Glucose UNC
[2022-03-19 16:21] LABS: ALT 25 U/L (10-49); AST 20 U/L (14-35); African American GFR (CKD) 105.8 (60.0-200.0); Albumin 4.7 g/dL (3.8-4.9); Albumin/Globulin Ratio 2.11 (1.60-3.17); Alkaline Phosphatase 143 U/L (41-126); Blood Urea Nitrogen 15.3 mg/dL (9.0-27.0); Calcium 9.7 mg/dL (8.7-10.3); Carbon Dioxide 22.6 mmol/L (20.0-27.5); Chloride 102 mmol/L (96-109); Chol/HDL Ratio 7.01 Ratio; Globulin 2.2 g/dL (1.6-3.3); Glucose 187 mg/dL (70-110); LDL Cholesterol,Calculated 149.2 mg/dL (0.0-131.0); Non-African American GFR(CKD) 91.3 (60.0-200.0); Potassium 4.6 mmol/L (3.5-5.5); Sodium 137 mmol/L (135-145); Total Protein 6.9 g/dL (6.2-8.2)
== END | disposition home or self-care (01) ==
LOC: LABWHC1 10:36
PROVIDERS: ATTEND Internal Medicine Endocrinology, Diabetes & Metabolism
DX: E10.65 Type 1 diabetes mellitus with hyperglycemia (principal)
CPT/HCPCS: 36415; 80053; 80061; 82043; 82570; 83036; 84443

== ENCOUNTER → 2022-08-13 | Outpatient (CLI) | payer BC ==
[2022-08-13 16:58] LABS: ALT 26 U/L (10-49); AST 19 U/L (14-35); African American GFR (CKD) 92.8 (60.0-200.0); Albumin 4.5 g/dL (3.8-4.9); Albumin/Globulin Ratio 2.05 (1.60-3.17); Alkaline Phosphatase 135 U/L (41-126); Blood Urea Nitrogen 17.6 mg/dL (9.0-27.0); Calcium 9.5 mg/dL (8.7-10.3); Carbon Dioxide 24.9 mmol/L (20.0-27.5); Chloride 104 mmol/L (96-109); Globulin 2.2 g/dL (1.6-3.3); Glucose 141 mg/dL (70-110); LDL Cholesterol,Calculated 148.8 mg/dL (0.0-131.0); Non-African American GFR(CKD) 80.1 (60.0-200.0); Potassium 4.5 mmol/L (3.5-5.5); Sodium 140 mmol/L (135-145); Total Protein 6.7 g/dL (6.2-8.2); VLDL Calculation 19.82 mg/dL (5.00-40.00)
== END | disposition home or self-care (01) ==
LOC: LABWHC1 11:37
PROVIDERS: ATTEND Internal Medicine Endocrinology, Diabetes & Metabolism
DX: E10.65 Type 1 diabetes mellitus with hyperglycemia (principal)
CPT/HCPCS: 36415; 80053; 80061; 82043; 82570; 83036; 84443

== ENCOUNTER 2022-10-05 12:40 | Emergency (ER) | payer BC ==
[2022-10-05 13:28] VITALS: TEMP 97.6
--- NOTE | 2022-10-05 14:14 | XR ---
EXAMINATION TYPE: XR hand complete LT DATE OF EXAM: 10/05/2022 1:59 PM INDICATION: Patient age:Male; 46 years old; Reason for study: thumb laceration.; COMPARISON: Radiograph 12/26/2017 TECHNIQUE: Frontal, lateral and oblique views of the left hand were obtained. FINDINGS: Persistent left second digit hyperechoic focus near the radial aspect of the second digit m etatarsal carpal phalangeal point similar to 2018. Normal alignment of the visualized joints. No acu te osseous pathology is identified. . IMPRESSION: No acute osseous pathology.
[2022-10-05] MEDS ORDERED: LIDOCAINE 1% INJ 10MG/ML (30 ML VIAL-PF) SQ ONE (15:21)
[2022-10-05] MEDS ORDERED: TOPICAL SKIN ADHESIVE 1 EACH AMP TOPICAL ONE (15:30)
--- NOTE | 2022-10-05 15:53 | ED ---
General Adult HPI - General Chief complaint: Extremity Injury, Upper Stated complaint: IHS - finger lac Time Seen by Provider: 10/05/22 13:54 Source: patient, RN notes reviewed Mode of arrival: ambulatory - History of Present Illness Initial comments: A 46-year-old male presents to the emergency department for left thumb laceration. He was working and a drill bit went through his L plantar aspect of L thumb. He tried Flexing his thumb and noted he heard a "pop." He has not tried anything for pain. He denies any numbness tingling, dizziness or lightheadedness. He is unable to flex his left thumb. He reports that his last tetanus vaccine was last year. - Related Data Home Medications Medication Instructions Recorded Confirmed Insulin Aspart (For Pump) [NovoLOG 0.01 unit SQ-PUMP CONTINUOUS 04/10/19 05/05/20 (For Pump)] Multivitamins, Thera [Multivitamin 1 tab PO DAILY 04/10/19 05/05/20 (formulary)] Omeprazole 20 mg PO DAILY 04/10/19 05/05/20 Losartan Potassium [Cozaar] 100 mg PO DAILY 05/05/20 05/05/20 Previous Rx's Medication Instructions Recorded Albuterol Inhaler [Ventolin Hfa 2 puff INHALATION RT-QID #1 inhaler 05/06/20 Inhaler] Aspirin 81 mg PO DAILY chew 05/06/20 Atorvastatin [Lipitor] 40 mg PO DAILY #30 tab 05/06/20 Azithromycin [Zithromax] 500 mg PO Q24H #7 tab 05/06/20 guaiFENesin-DM 600/30MG [Mucinex 1 each PO Q12HR #30 tab.er.12h 05/06/20 Dm] Allergies Allergy/AdvReac Type Severity Reaction Status Date / Time amoxicillin Allergy Itching Verified 10/05/22 13:28 Review of Systems ROS Statement: Those systems with pertinent positive or pertinent negative responses have been documented in the HPI. ROS Other: All systems not noted in ROS Statement are negative. Past Medical History Past Medical History: Diabetes Mellitus, Hyperlipidemia, Hypertension History of Any Multi-Drug Resistant Organisms: None Reported Past Surgical History: No Surgical Hx Reported Past Psychological History: No Psychological Hx Reported Smoking Status: Current every day smoker Past Alcohol Use History: Occasional Past Drug Use History: None Reported - Past Family History Father Family Medical History: Myocardial Infarction ([place]) Additional Family Medical History / Comment(s): Father is alive at age 73 with history of coronary artery disease. Mother Additional Family Medical History / Comment(s): Mother is alive at age 73 with history of coronary artery disease. Brother(s) Additional Family Medical History / Comment(s): Patient does not have any brothers. Patient has 2 sisters with no major medical problems. Patient has 4 children with no major medical problems. General Exam General appearance: alert, in no apparent distress Head exam: Present: atraumatic, normocephalic, normal inspection Eye exam: Present: normal appearance, PERRL, EOMI. Absent: scleral icterus, conjunctival injection, periorbital swelling ENT exam: Present: normal exam, mucous membranes moist Neck exam: Present: normal inspection. Absent: tenderness, meningismus, lymphadenopathy Respiratory exam: Present: normal lung sounds bilaterally. Absent: respiratory distress, wheezes, rales, rhonchi, stridor Cardiovascular Exam: Present: regular rate, normal rhythm, normal heart sounds. Absent: systolic murmur, diastolic murmur, rubs, gallop, clicks GI/Abdominal exam: Present: soft, normal bowel sounds. Absent: distended, tenderness, guarding, rebound, rigid Extremities exam: Present: normal inspection, full ROM, normal capillary refill. Absent: tenderness, pedal edema, joint swelling, calf tenderness Left Hand Wrist exam: Present: normal inspection, full ROM. Absent: tenderness, swelling, ecchymosis Hand L/R Front: 1 - laceration (2cm laceration without edema, erythema, ecchymosis. No active bleeding. No crepitus. Limited ROM, patient unable to flex DIP joint) Back exam: Present: normal inspection Neurological exam: Present: alert, oriented X3, CN II-XII intact Psychiatric exam: Present: normal affect, normal mood Skin exam: Present: warm, dry, intact, normal color. Absent: rash Course Vital Signs 10/05/22 10/05/22 13:26 16:05 Temperature 97.6 F Pulse Rate 86 80 Respiratory 16 18 Rate Blood Pressure 146/86 132/78 O2 Sat by Pulse 98 100 Oximetry - Reevaluation(s) Reevaluation #1: 10/05/22 15:30: Spoke with Vimal Ibarra PA-C, Orthopedists who recommends regular nonadhesive bandage and splint with wrap and follow up with Dr. Olivas Medical Decision Making - Medical Decision Making Was pt. sent in by a medical professional or institution (, [facility], AUTOMOTIVE REPAIR TECHNICIAN, urgent care, hospital, or [facility]...) When possible be specific @ -[No] Did you speak to anyone other than the patient for history (EMS, parent, family, police, friend...)? What history was obtained from this source @ -[No] Did you review nursing and triage notes (agree or disagree)? Why? @ -[I reviewed and agree with nursing and triage notes] Were old charts reviewed (outside hosp., previous admission, EMS record, old EKG, old radiological studies, urgent care reports/EKG's, [facility] records)? Report findings @ -[No old charts were reviewed] Differential Diagnosis (chest pain, altered mental status, abdominal pain women, abdominal pain men, vaginal bleeding, weakness, fever, dyspnea, syncope, headache, dizziness, GI bleed, back pain, seizure, CVA, palpatations, mental health)? @ -[not applicable] EKG interpreted by me (3pts min.). @ -[As above] X-rays interpreted by me (1pt min.). @ No evidence of fracture CT interpreted by me (1pt min.). @ -[None done] U/S interpreted by me (1pt. min.). @ -[None done] What testing was considered but not performed or refused? (CT, X-rays, U/S, labs)? Why? @ -[None] What meds were considered but not given or refused? Why? @ -[None] Did you discuss the management of the patient with other professionals (andrew belcher i.e. , ALICIA, AUTOMOTIVE REPAIR TECHNICIAN, lab, RT, psych nurse, social sciences instructor, organ fixer, teacher, unclaimed property officer, case reviewer)? Give summary @ -[No] Was smoking cessation discussed for >3mins.? @ -[No] Was critical care preformed (if so, how long)? @ -[No] Were there social determinants of health that impacted care today? How? (Homelessness, low income, unemployed, alcoholism, drug addiction, transportation, low edu. Level, literacy, decrease access to med. care, [facility], rehab)? @ -[No] Was there de-escalation of care discussed even if they declined (Discuss DNR or withdrawal of care, Hospice)? DNR status @ -[No] What co-morbidities impacted this encounter? (DM, HTN, Smoking, COPD, CAD, Cancer, CVA, ARF, Chemo, Hep., AIDS, mental health diagnosis, sleep apnea, morbid obesity)? @ -[None] Was patient admitted / discharged? Hospital course, mention meds given and route, prescriptions, significant lab abnormalities, going to OR and other pertinent info. @ 46year-old male presents to the emergency department for L thumb/hand pain. Patient had history and physical performed, physical exam revels 2cm lac on left thumb, patient unable to flex thumb at DIP joint. Patient had lab work and imaging ordered and performed while in the emergency department, workup is essentially unremarkable. I discussed the results in detail with the patient, all questions and concerns were addressed. Patient is agreeable with the plan for discharge. The patient was discharged in stable condition with recommended close follow-up with primary care in 1-2 days. He was given a referral for Dr. Olivas orthopedist and recommended to follow up with his office in 1-2 days. Pt refused pain medication. Return precautions were discussed. I discussed the case with DAVE Posada who agrees with the plan of care. Undiagnosed new problem with uncertain prognosis? @ -[No] Drug Therapy requiring intensive monitoring for toxicity (Heparin, Nitro, Insulin, Cardizem)? @ -[No] Were any procedures done? @ -[No] Diagnosis/symptom? @ -L thumb laceration Acute, or Chronic, or Acute on Chronic? @ -[default] Uncomplicated (without systemic symptoms) or Complicated (systemic symptoms)? @ -[default] Side effects of treatment? @ -[No] Exacerbation, Progression, or Severe Exacerbation? @ -[No] Poses a threat to life or bodily function? How? (Chest pain, [place], [place], pneumonia, PE, COPD, DKA, ARF, appy, cholecystitis, CVA, Diverticulitis, Homicidal, Suic idal, threat to staff... and all critical care pts) @ -[No] Disposition Clinical Impression: Laceration of thumb Disposition: HOME SELF-CARE Condition: Stable Is patient prescribed a controlled substance at d/c from ED?: No Referrals: Joel Best DO [Primary Care Provider] - 1-2 days Victor Manuel Olivas DO [Doctor of Osteopathic Medicine] - 1-2 days Time of Disposition: 15:53
[2022-10-05 16:06] VITALS: BP 132/78; PULSE 80; RESP 18
== END 2022-10-05 16:06 | disposition home or self-care (01) ==
LOC: EC 12:40
DX: S61.012A Laceration without foreign body of left thumb without damage to nail, initial encounter (principal); E11.9 Type 2 diabetes mellitus without complications; I10 Essential (primary) hypertension; F17.200 Nicotine dependence, unspecified, uncomplicated; Z88.1 Allergy status to other antibiotic agents; Z79.4 Long term (current) use of insulin; Z79.899 Other long term (current) drug therapy; W29.8XXA Contact with other powered hand tools and household machinery, initial encounter; Y99.0 Civilian activity done for income or pay
CPT/HCPCS: 99283 ×2; 12001 ×2; 73130; J2001

== ENCOUNTER 2022-10-12 08:58 | Day surgery (SDC) | payer BC ==
--- NOTE | 2022-10-11 12:19 | P.HPOR ---
History of Present Illness H&P Date: 10/11/22 Chief Complaint: Left thumb flexor tendon laceration Subjective: This is a 46 year old male that presents today for initial evaluation regarding a left thumb injury that occurred on 10/05/21. He had a drill bit go through his thumb and since he has been unable to bend the thumb. He denies any other symptoms. He was seen in the ED where his wound was washed out. He denies any paresthesias. He is a type 1 diabetic on an insulin pump and is left hand dom inant. Physical Examination: LUE: AIN/PIN/Radial/Ulnar/Median motor intact. Radial/Ulnar/Median SILT. 2+/4 Radial/Ulnar pulses palpated. 5/5 APB, 5/5 FDI. Patient unable to flex thumb IP joint. TTP at thumb A1 hiral. No paradoxical thumb IP flexion appreciated with wrist extension. Imaging: X-Rays of the left hand taken in the ED on 10/05/22 demonstrate no acute fracture/dislocation. Impression: 1.) Left thumb flexor pollicis longus tendon laceration Plan: Diagnosis and treatment options were discussed with the patient. I recommend urgent surgical intervention with left thumb flexor tendon repair due to the injury and the fact that he is already 5 days out from his injury and that flexor tendons need to be addressed in a timely manner to optimize outcomes. Risks and benefits of surgery including bleeding, infection, damage to surrounding tissue, stiffness, need for hand therapy post operatively, need for further surgery, residual numbness were discussed and the patient wished to go forward with surgery. I anticipate 6 weeks of right handed work only post operatively. RX for keflex is given. Labs EKG are ordered. He is placed in a thumb spica brace and surgery will be scheduled for this week. The patient was agreeable with this plan. -Victor Manuel Olivas DO Orthopedic Hand/Upper Extremity Surgeon Past Medical History Past Medical History: Diabetes Mellitus, GERD/Reflux, Hyperlipidemia, Hypertension Additional Past Medical History / Comment(s): left thumb injured with drill bit. History of Any Multi-Drug Resistant Organisms: None Reported Past Surgical History: No Surgical Hx Reported Additional Past Surgical History / Comment(s): Colonoscopy Past Anesthesia/Blood Transfusion Reactions: No Reported Reaction Smoking Status: Current every day smoker - Past Family History Father Family Medical History: Coronary Artery Disease (CAD), Myocardial Infarction ([place]) Additional Family Medical History / Comment(s): Father is alive at age 73 with history of coronary artery disease. Mother Family Medical History: Coronary Artery Disease (CAD) Additional Family Medical History / Comment(s): Mother is alive at age 73 with history of coronary artery disease. Brother(s) Additional Family Medical History / Comment(s): Patient does not have any brothers. Patient has 2 sisters with no major medical problems. Patient has 4 children with no major medical problems. Medications and Allergies Home Medications Medication Instructions Recorded Confirmed Type Insulin Aspart (For Pump) [NovoLOG 0.01 unit SQ-PUMP CONTINUOUS 04/10/19 10/10/22 History (For Pump)] Multivitamins, Thera [Multivitamin 1 tab PO DAILY 04/10/19 10/10/22 History (formulary)] Omeprazole 20 mg PO DAILY 04/10/19 10/10/22 History Losartan Potassium [Cozaar] 100 mg PO DAILY 05/05/20 10/10/22 History Aspirin 81 mg PO DAILY chew 05/06/20 10/10/22 Rx Atorvastatin [Lipitor] 40 mg PO HS 10/10/22 10/10/22 History Allergies Allergy/AdvReac Type Severity Reaction Status Date / Time Penicillins Allergy Rash/Hives Verified 10/10/22 14:10 Physical Examination Osteopathic Statement: *. No significant issues noted on an osteopathic structural exam other than those noted in the History and Physical/Consult.
[2022-10-12] MEDS ORDERED: ONDANSETRON 4 MG/2 ML VIAL ONE (09:35)
[2022-10-12] MEDS ORDERED: ONDANSETRON 4 MG/2 ML VIAL IVP ONE ×2 (09:35→09:40)
[2022-10-12] MEDS ORDERED: fentaNYL (PF) 50 MCG/ML 2 ML AMP IVP ONE (09:39)
[2022-10-12] MEDS ORDERED: MIDAZOLAM 2 MG/2 ML VIAL IVP ONE (09:39)
[2022-10-12] MEDS ORDERED: LACTATED RINGERS 1,000 ML IV ONE ×4 (09:40→10:33)
[2022-10-12 09:51] LABS: Glucose,Whole Blood 200 mg/dL (70-110)
--- NOTE | 2022-10-12 09:58 | P.ANPRN ---
Procedure Note - Anesthesia - Nerve Block Performed Left Axillary Single Time Out Performed: Yes Date of Procedure: 10/12/22 Procedure Start Time: 08:39 Procedure Stop Time: 08:43 Location of Patient: PreOp Indication: Acute Post-Operative Pain, Requested by Surgeon Sedation Type: Sedate with meaningful contact maintained Preparation: Sterile Prep Position: Supine Needle Types: Pajunk Needle Gauge: 21 Ultrasound used to visualize needle placement: Yes Ultrasound used to observe medication spread: Yes Injectate: 0.5% Ropivacaine (see comment for volume) (30 ml 0.5 % Ropiv) Blood Aspirated: No Pain Paresthesia on Injection Noted: No Resistance on Injection: Normal Image Stored and Saved: Yes Events: Uneventful and Well Tolerated
[2022-10-12] MEDS ORDERED: fentaNYL (PF) 50 MCG/ML 2 ML AMP ONE (09:59)
[2022-10-12] MEDS ORDERED: ROPIVACAINE 5 MG/ML 30 ML VIAL ONE (09:59)
[2022-10-12] MEDS ORDERED: MIDAZOLAM 2 MG/2 ML VIAL ONE (09:59)
[2022-10-12] MEDS ORDERED: LIDOCAINE 2% INJ 20 MG/ML (2 ML VIAL) ONE (09:59)
[2022-10-12] MEDS ORDERED: ePHEDrine 50 MG/ML 1 ML VIAL ONE (09:59)
[2022-10-12] MEDS ORDERED: PROPOFOL 10 MG/ML 20 ML VIAL IV ONE (09:59)
[2022-10-12 11:54] VITALS: TEMP 97
[2022-10-12 12:24] LABS: Glucose,Whole Blood 195 mg/dL (70-110)
[2022-10-12 12:35] VITALS: BP 118/77; PULSE 78; RESP 16
--- NOTE | 2022-10-12 18:01 | P.OP ---
Date of Procedure: 10/12/22 Preoperative Diagnosis: 1.) Left thumb flexor pollicis longus tendon laceration Postoperative Diagnosis: 1.) Left thumb flexor pollicis longus tendon laceration Procedure(s) Performed: 1.) Left thumb flexor pollicis longus tendon laceration repair Anesthesia: LAWANDA, regional Surgeon: Victor Manuel Olivas Functional Architect #1: Vimal Ibarra Estimated Blood Loss (ml): 0 Pathology: none sent Condition: stable Disposition: PACU Description of Procedure: This is a 46 year old male who presents today for surgical intervention for a left thumb flexor pollicis longus tendon laceration. Risks and benefits of surgery were discussed with the patient including bleeding, damage to surrounding tissue, infection, need for further surgery as well as risks of anesthesia including pulmonary embolism and even and the patient wished to proceed with surgical intervention. The patient was seen in the pre-operative area by myself. Consent and H&P were completed and updated. The correct extremity was marked in the pre-operative area by myself and all other questions were answered. Operative Narrative: The patient was brought to the operating room by the department of anesthesia. The patient received a region block in the preoperative area by the Anesthesiologist. They remained on the portable stretcher and a rolling hand table was brought to the side of the operative extremity. Pre-operative time out was performed indicating the correct patient, procedure and laterality. All in the room agreed. Pre-operative antibiotics were given prior to skin incision. The patient was then drifted off to sleep by the department of anesthesia. A nonsterile tourniquet was then applied to the operative extremity and the right upper extremity was then prepped and draped in normal sterile fashion. The operative extremity was the exsanguinated with an esmarch bandage and the to urniquet was inflated to 250mmHg. The oblique laceration at the volar DIP joint crease was extended proximally and distally in a Krystian type fashion. Blunt dissection was taken down through subcutaneous tissues taking care to protect terminal branches of the radial and ulnar digital nerves. There appeared to be a complete FPL tendon laceration at the level of the DIP joint with 2cm left of robust FPL stump remaining. The proximal tendon was not able to be identified in the sheath despite milking the sheath, palm and forearm. Therefore decision was made to find the tendon in the carpal tunnel. 15 blade scalpel was utilized to make a transverse incision on the palmar skin centered over the palmaris longus tendon at the level of the distal wrist crease. Ragnell retractor was then placed radially and blunt dissection was performed to reveal the distal forearm fascia. This was lifted with fine Aquiles pick ups and Littler tenotomy scissors were then used to open the forearm fascia transversely and a the median nerve was identified, protected and retracted ulnarly. Immediately deep to the median nerve the FPL tendon was identified and retrieved through the incision and was found to be 100% lacerated. Next an 8 Tamazight pediatric feeding tube was then inserted retrograde from the thumb flexor tendon sheath and tunneled and successfully delivered to the incision in the carpal tunnel. The distal end of the FPL tendon was then sutured to the proximal end of the feeding tube and was successfully tunneled back distally through the FPL tendon sheath. 22G needle was used to h old the tendon in the sheath and feeding tube was removed. Using a 4-0 ethibond suture a 2 strand core suture in a modified amaya fashion was performed. Following core suture placement a 5-0 running epitendinous suture was then performed with the thumb IP joint held in flexion in a tension free manner. The wound was then irrigated and skin closure was performed with 4-0 nylon suture in the thumb and 4-0 monocryl suture in the wrist crease with mastisol and steri strips. Sterile dressing was applied including adaptic, 4x4s, webril and a plaster dorsal blocking splint and thumb spica splint with the thumb held in IP flexion was applied. Tourniquet was let down and the digit had immediate perfusion. The patient was then woken by the department of anesthesia and transferred to PACU in stable condition. Vimal VARGAS was present of the case to assist in major portions including tendon retrieval, repair and protection of neurovascular structures. Victor Manuel Olivas D.O. Orthopedic Hand/Upper Extremity Surgeon
== END 2022-10-12 12:56 | disposition home or self-care (01) ==
LOC: OR 08:58
PROVIDERS: ATTEND Orthopaedic Surgery Hand Surgery
DX: S66.022A Laceration of long flexor muscle, fascia and tendon of left thumb at wrist and hand level, initial encounter (principal); G89.18 Other acute postprocedural pain; E11.9 Type 2 diabetes mellitus without complications; K21.9 Gastro-esophageal reflux disease without esophagitis; E78.5 Hyperlipidemia, unspecified; I10 Essential (primary) hypertension; F17.200 Nicotine dependence, unspecified, uncomplicated; Z82.49 Family history of ischemic heart disease and other diseases of the circulatory system; Z79.899 Other long term (current) drug therapy; Z79.82 Long term (current) use of aspirin; Z88.0 Allergy status to penicillin; Z79.1 Long term (current) use of non-steroidal anti-inflammatories (NSAID)
CPT/HCPCS: 25260; 64415; 76942; J2250; J0690; J2405; J3010; J2795; J2704; J2001

== ENCOUNTER → 2024-06-10 | Outpatient (CLI) | payer BC ==
[2024-06-10 15:32] LABS: ALT 20 U/L (10-49); AST 18 U/L (14-35); Albumin 4.4 g/dL (3.8-4.9); Alkaline Phosphatase 116 U/L (41-126); Blood Urea Nitrogen 18.4 mg/dL (9.0-27.0); Calcium 9.3 mg/dL (8.7-10.3); Carbon Dioxide 25.1 mmol/L (21.6-31.8); Chloride 106 mmol/L (96-109); Chol/HDL Ratio 6.33 Ratio; Globulin 2.2 g/dL (1.6-3.3); Glucose 198 mg/dL (70-110); LDL Cholesterol,Calculated 157.1 mg/dL (0.0-131.0); Potassium 4.8 mmol/L (3.5-5.5); Sodium 141 mmol/L (135-145); Total Bilirubin 0.7 mg/dL (0.3-1.2); Total Protein 6.6 g/dL (6.2-8.2)
== END | disposition home or self-care (01) ==
LOC: LABWHC1 08:18
PROVIDERS: ATTEND Internal Medicine Endocrinology, Diabetes & Metabolism
DX: E10.65 Type 1 diabetes mellitus with hyperglycemia (principal)
CPT/HCPCS: 36415; 80053; 80061; 82043; 82570; 83036; 84443